=== PATIENT | female | born 2000 | race African-American/Black ===

== ENCOUNTER 2020-08-22 00:11 | Emergency (ER) | payer SELFPAY ==
[~2020-08-22] VITALS: Ht 160 cm; Wt 81.8 kg
[2020-08-22 00:51] LABS: BASO % 0.4 % (0.0-2.0); EOS # 0.2 (0.0-0.7); EOS % 1.7 % (0-4.0); GRAN # 5.8 (1.4-6.5); GRAN % 59.2 % (42.2-75.2); HEMOGLOBIN 12.3 g/dl (12.5-16.0); LYMPH # 3.2 (1.2-3.4); LYMPH % 32.1 % (20.0-51.0); MEAN CELL VOLUME 69 fl (80.0-100.0); MEAN CORPUSCULAR HEMOGLOBIN 23 pg (27.0-31.0); MEAN CORPUSCULAR HGB CONC 33 g/dl (33.0-37.0); MONO # 0.6 (0.1-0.6); MONO % 6.3 % (1.7-9.3); PLATELET COUNT 481 K/mm3 (130-400); RED BLOOD COUNT 5.36 M/mm3 (4.10-5.30); REDCELL DISTRIBUTION WIDTH-CV 16.6 % (11.5-14.5)
[2020-08-22 00:52] LABS: HEMATOCRIT 36.9 % (37.0-47.0)
[2020-08-22 01:05] LABS: ALBUMIN 4.4 gm/dL (3.5-5.0); BILIRUBIN,TOTAL 0.4 mg/dL (0.0-1.0); C-REACTIVE PROTEIN 3.3 mg/dL (0.0-0.9); CALCIUM 9.2 mg/dL (8.4-10.2); CREATININE, serum 0.71 (0.52-1.25); POTASSIUM 3.9 mmol/L (3.4-5.0); TOTAL PROTEIN 7.8 gm/dL (6.4-8.2)
[2020-08-22 01:28] LABS: COLLECTION METHOD CLEAN CATCH
[2020-08-22 01:38] LABS: AMORPHOUS CRYSTAL Present /uL; MUCOUS Present /lpf; PH 7 (5-8); URINE APPEARANCE Cloudy; URINE BACTERIA Rare /hpf; URINE BILIRUBIN Negative (NEGATIVE); URINE BLOOD Negative (NEGATIVE); URINE COLOR Yellow; URINE GLUCOSE Negative (NEGATIVE); URINE KETONE Negative (NEGATIVE); URINE LEUKOCYTE ESTERASE 1+ (NEGATIVE); URINE NITRATE Negative (NEGATIVE); URINE PROTEIN(semi-quant) Negative (NEGATIVE); URINE UROBILINOGEN >=4.0 mg/dL (NEGATIVE)
[2020-08-22 03:24] VITALS: BP 142/70; PULSE 80
[2020-08-23] MEDS ORDERED: BACTRIM DS 8001 TAB PO (09:15)
[2020-08-23] MEDS ORDERED: TYLENOL 325MG325 MG PO (09:15)
== END 2020-08-22 03:24 | disposition home or self-care (01) ==
LOC: COL.ER 00:11
PROVIDERS: Physician Assistant
DX: R10.11 Right upper quadrant pain (principal); K59.00 Constipation, unspecified; R30.0 Dysuria
CPT/HCPCS: J1885; J2405; J7030

== ENCOUNTER 2020-08-23 08:11 | Emergency (ER) | payer SELFPAY ==
[~2020-08-23] VITALS: Ht 160 cm; Wt 86.4 kg
[2020-08-23 08:12] VITALS: TEMP 98.7
[2020-08-23 08:27] LABS: COLLECTION METHOD CLEAN CATCH
[2020-08-23 08:51] LABS: MUCOUS Present /lpf; PH 5 (5-8); SQUAMOUS EPITHELIAL 0-2 /hpf; URINE APPEARANCE Clear; URINE BACTERIA Rare /hpf; URINE BILIRUBIN Negative (NEGATIVE); URINE BLOOD Negative (NEGATIVE); URINE COLOR Yellow; URINE GLUCOSE Negative (NEGATIVE); URINE KETONE Negative (NEGATIVE); URINE LEUKOCYTE ESTERASE Negative (NEGATIVE); URINE NITRATE Negative (NEGATIVE); URINE PROTEIN(semi-quant) Negative (NEGATIVE); URINE RBC 0-2 /hpf; URINE UROBILINOGEN Negative (NEGATIVE); URINE WBC 0-2 /hpf
[2020-08-23] MEDS ORDERED: BACTRIM DS 8001 TAB PO (09:15)
[2020-08-23] MEDS ORDERED: TYLENOL 325MG325 MG PO (09:15)
[2020-08-23 09:29] VITALS: BP 142/99; PULSE 82
== END 2020-08-23 09:30 | disposition home or self-care (01) ==
LOC: COL.ER 08:11
PROVIDERS: Emergency Medicine
DX: G89.29 Other chronic pain (principal); R10.9 Unspecified abdominal pain

== ENCOUNTER 2020-11-16 18:09 | Emergency (ER) | payer SELFPAY ==
[~2020-11-16] VITALS: Ht 160 cm; Wt 86.4 kg
[~2020-11-16 18:09] MED LIST: BACTRIM DS 8001 TAB PO; TYLENOL 325MG325 MG PO
[2020-11-16 18:10] VITALS: TEMP 97.9
[2020-11-16] MEDS ORDERED: GLUCOPHAGE1000 MG PO (18:16)
[2020-11-16] MEDS ORDERED: ZOCOR5 MG PO (18:17)
[2020-11-16 20:10] VITALS: BP 148/99; PULSE 97
== END 2020-11-16 20:10 | disposition home or self-care (01) ==
LOC: COL.ER 18:09
DX: S00.83XA Contusion of other part of head, initial encounter (principal); S00.511A Abrasion of lip, initial encounter; G89.29 Other chronic pain; R10.9 Unspecified abdominal pain; Y04.8XXA Assault by other bodily force, initial encounter

== ENCOUNTER 2021-01-14 20:34 | Emergency (ER) | payer SELFPAY ==
[~2021-01-14] VITALS: Ht 157.5 cm; Wt 86.4 kg
[~2021-01-14 20:34] MED LIST changes: +GLUCOPHAGE1000 MG PO; +ZOCOR5 MG PO
[2021-01-14 22:09] LABS: BASO % 0.4 % (0.0-2.0); EOS # 0.4 (0.0-0.7); EOS % 3.3 % (0-4.0); GRAN # 5.7 (1.4-6.5); GRAN % 50.3 % (42.2-75.2); HEMOGLOBIN 11.9 g/dl (12.5-16.0); LYMPH # 4.3 (1.2-3.4); LYMPH % 37.9 % (20.0-51.0); MEAN CELL VOLUME 68 fl (80.0-100.0); MEAN CORPUSCULAR HEMOGLOBIN 22 pg (27.0-31.0); MEAN CORPUSCULAR HGB CONC 33 g/dl (33.0-37.0); MEAN PLATELET VOLUME 8.8 fl (7.4-10.4); MONO # 0.9 (0.1-0.6); MONO % 7.7 % (1.7-9.3); PLATELET COUNT 458 K/mm3 (130-400); RED BLOOD COUNT 5.36 M/mm3 (4.10-5.30); REDCELL DISTRIBUTION WIDTH-CV 16.7 % (11.5-14.5)
[2021-01-14 22:19] LABS: ALANINE AMINOTRANSFERASE 20 U/L (4-34); ALBUMIN 4.3 gm/dL (3.5-5.0); ALKALINE PHOSPHATASE 89 U/L (50-136); ANION GAP 8 mmol/L (7-16); AST,SGOT 36 U/L (15-37); BILIRUBIN,TOTAL 0.3 mg/dL (0.0-1.0); BLOOD UREA NITROGEN 10 mg/dL (7-17); CALCIUM 9.4 mg/dL (8.4-10.2); CARBON DIOXIDE 23 mmol/L (22-30); CHLORIDE 107 mmol/L (98-107); CREATININE, serum 0.61 (0.52-1.25); GLUCOSE 96 mg/dL (74-106); POTASSIUM 4.1 mmol/L (3.4-5.0); SODIUM 138 mmol/L (137-145); TOTAL PROTEIN 8.2 gm/dL (6.4-8.2)
[2021-01-14 22:20] LABS: HEMATOCRIT 36.4 % (37.0-47.0)
[2021-01-14 22:31] LABS: TROPONIN-I < 0.012 ng/mL (0.000-0.035)
[2021-01-15] MEDS ORDERED: MOTRIN 800800 MG/TAB PO (00:19)
[2021-01-15] MEDS ORDERED: ZITHROMAX Z PA250 MG PO (00:19)
[2021-01-15 00:31] VITALS: BP 137/89; PULSE 95; TEMP 98.9
== END 2021-01-15 00:31 | disposition home or self-care (01) ==
LOC: COL.ER 20:34
PROVIDERS: Personal Emergency Response Attendant
DX: J40 Bronchitis, not specified as acute or chronic (principal); N93.9 Abnormal uterine and vaginal bleeding, unspecified; I10 Essential (primary) hypertension; E11.9 Type 2 diabetes mellitus without complications; F17.210 Nicotine dependence, cigarettes, uncomplicated; Z79.84 Long term (current) use of oral hypoglycemic drugs
CPT/HCPCS: J2270; J2405

== ENCOUNTER 2021-02-10 21:33 | Emergency (ER) | payer SELFPAY ==
[~2021-02-10] VITALS: Ht 160 cm; Wt 86.4 kg
[~2021-02-10 21:33] MED LIST changes: +MOTRIN 800800 MG/TAB PO; +ZITHROMAX Z PA250 MG PO
[2021-02-10 21:34] VITALS: PULSE 120; TEMP 97.8
[2021-02-10] MEDS ORDERED: BIRTH CONTROL (21:42)
[2021-02-10] MEDS ORDERED: AMOXICILLIN 8751 TAB PO (22:58)
[2021-02-11 00:12] VITALS: BP 160/115
== END 2021-02-11 00:49 | disposition home or self-care (01) ==
LOC: COL.ER 21:33
DX: S00.83XA Contusion of other part of head, initial encounter (principal); S00.12XA Contusion of left eyelid and periocular area, initial encounter; S00.11XA Contusion of right eyelid and periocular area, initial encounter; F17.210 Nicotine dependence, cigarettes, uncomplicated; Y04.0XXA Assault by unarmed brawl or fight, initial encounter